=== PATIENT | female | born 1980 | race Caucasian/White ===

== ENCOUNTER 2016-07-24 19:14 | Inpatient (IN) | payer OTHER ==
[~2016-07-24] VITALS: Ht 157.5 cm; Wt 103.5 kg
[2016-07-24] MEDS ORDERED: DIPHTH,PERTUSS(ACELL),TET TOX 0.5 ML DISP.SYRIN. VAX IM ONE (19:30)
[2016-07-24] MEDS ORDERED: HYDROMORPHONE 2 MG/ML VIAL. IV ONE (19:30)
[2016-07-24] MEDS ORDERED: HYDROMORPHONE 2 MG/ML VIAL. ONE (19:30)
[2016-07-24] MEDS ORDERED: CEFAZOLIN 1GM IVPB FOR OMNI 50 ML IV ONE (19:30)
[2016-07-24 19:41] LABS: BASO % 0 % (0-3); EOS % 2 % (0-3); HEMATOCRIT 40.6 % (36.0-47.0); HEMOGLOBIN 13.5 g/dL (12.0-15.5); LYMPH # 5.6 x10^3/uL (1.0-4.8); LYMPH % 35 % (24-48); MEAN CORPUSCULAR HEMOGLOBIN 30 pg (25-35); MEAN CORPUSCULAR HGB CONC 33 g/dL (31-37); MEAN CORPUSCULAR VOLUME 89 fL (79-100); MONO % 4 % (0-9); NEUT % 59 % (31-73); PLATELET COUNT 370 x10^3/uL (140-400); RED BLOOD COUNT 4.55 x10^6/uL (3.50-5.40); WHITE BLOOD COUNT 16.2 x10^3/uL (4.0-11.0)
[2016-07-24 19:51] LABS: CALCIUM 8.9 mg/dL (8.5-10.1); CREATININE 0.7 mg/dL (0.6-1.0); GFR 93.6; POTASSIUM 3.6 mmol/L (3.5-5.1)
[2016-07-24 19:52] LABS: PROTHROMBIN TIME PATIENT 12.7 SEC (11.7-14.0)
[2016-07-24] MEDS: HYDROMORPHONE 2 MG/ML VIAL. IV PRN ×2 (20:04→21:09)
[2016-07-24] MEDS ORDERED: LIDOCAINE 1% / SOD BICARB 8.4% 20 ML VIAL. IJ ONE (20:15)
[2016-07-24] MEDS ORDERED: FENTANYL PF 100 MCG/2 ML VIAL. ONE (20:30)
[2016-07-24] MEDS ORDERED: PROPOFOL 20 ML IV ONE (20:30)
[2016-07-24] MEDS ORDERED: LIDOCAINE 2% 100 MG/5 ML DISP.SYRIN. ONE (20:30)
[2016-07-24] MEDS ORDERED: BACITRACIN TOPICAL OINT 14GM TUBE. TP STA (20:50)
[2016-07-24] MEDS ORDERED: NEOMY/BACITR/POLYMYXIN OINT PACKET. TP ONE (20:51)
[2016-07-24] MEDS: IV NORMAL SALINE 1000ML BAG 1,000 ML IV ONE (21:00)
[2016-07-24] MEDS ORDERED: ONDANSETRON PF 4 MG/2 ML VIAL. IV PRN ×4 (21:00→23:00)
--- NOTE | 2016-07-24 21:02 | PHYS DOC ---
Past Medical History Past Medical History: Anxiety, High Cholesterol Past Surgical History: Other Additional Past Surgical Histo: leep Alcohol Use: Occasionally Drug Use: None Adult General Chief Complaint Chief Complaint: TRAUMA ALERT HPI HPI This is a 28-year-old female who states she fell down 5 steps head first and did impact her jaw slightly but did not have any loss consciousness. She has significant right ankle pain and obvious deformity and open fracture to the right ankle. She also has a superficial laceration to her left forearm approximately 3.5 cm in length. EMS administered 200 g of fentanyl in route and the patient presents in mild distress with her injured right ankle. Patient was made a trauma alert. She denies any history of health problems. She localizes all her pain to her right ankle. She denies any forearm pain whatsoever. She denies any hand or arm pain. She denies any abdominal pain or chest pain. She denies any headache rated. She does not take any blood thinners. Review of Systems Review of Systems Constitutional: Denies fever or chills [] Eyes: Denies change in visual acuity, redness, or eye pain [] HENT: Denies nasal congestion or sore throat [] Respiratory: Denies cough or shortness of breath [] Cardiovascular: No additional information not addressed in HPI [] GI: Denies abdominal pain, nausea, vomiting, bloody stools or diarrhea [] : Denies dysuria or hematuria [] Musculoskeletal: Denies back pain or joint pain [] Integument: Denies rash or skin lesions [] Neurologic: Denies headache, focal weakness or sensory changes [] Endocrine: Denies polyuria or polydipsia [] Current Medications Current Medications Current Medications Medications (Trade) Dose Ordered Sig/Familia Start Time Stop Time Status Last Admin Dose Admin Bacitracin 1 elana 1X STAT 07/24/16 20:50 07/24/16 20:53 DC 07/24/16 20:57 1 ELANA Cefazolin Sodium (Ancef 1gm Ivpb For Omni) 50 ml @ 100 mls/hr 1X ONCE 07/24/16 19:30 07/24/16 19:59 DC 07/24/16 19:53 100 MLS/HR Diphtheria/ Tetanus/Acell Pertussis (Boostrix) 0.5 ml ONCE ONCE 07/24/16 19:30 07/24/16 19:32 DC 07/24/16 19:53 0.5 ML Fentanyl Citrate (Fentanyl 2ml Vial) 100 mcg STK-MED ONCE 07/24/16 20:30 07/24/16 20:31 DC Hydromorphone HCl (Dilaudid) 1 mg Q1HR PRN 07/24/16 20:00 07/24/16 21:09 1 MG Hydromorphone HCl 1 mg 1 mg 1X ONCE 07/24/16 19:30 07/24/16 19:32 DC 07/24/16 19:32 1 MG Lidocaine HCl 100 mg STK-MED ONCE 07/24/16 20:30 07/24/16 20:31 DC Lidocaine/Sodium Bicarbonate 20 ml 20 ml 1X ONCE 07/24/16 20:15 07/24/16 20:16 DC 07/24/16 20:09 20 ML Neomycin/ Polymyxin/ Bacitracin (Triple Antibiotic Ointment) 1 pkt STK-MED ONCE 07/24/16 20:51 07/24/16 20:52 DC Propofol (Diprivan) 20 ml @ As Directed STK-MED ONCE 07/24/16 20:30 07/24/16 20:31 DC Allergies Allergies Physical Exam Physical Exam Constitutional: Well developed, well nourished, no acute distress, non-toxic appearance. [] HENT: Normocephalic, atraumatic, bilateral external ears normal, oropharynx moist, no oral exudates, nose normal. [] Eyes: PERRLA, EOMI, conjunctiva normal, no discharge. [] Neck: Normal range of motion, no tenderness, supple, no stridor. [] Cardiovascular:Heart rate regular rhythm, no murmur [] Lungs & Thorax: Bilateral breath sounds clear to auscultation [] Abdomen: Bowel sounds normal, soft, no tenderness, no masses, no pulsatile masses. [] Skin: Warm, dry, no erythema, no rash. [] Back: No tenderness, no CVA tenderness. [] Extremities: Laceration overlying the lateral malleolus in the right ankle approximately 3 cm, superficial left forearm laceration approximately 3.5 cm, there is obvious deformity to the right ankle, there is no other obvious deformity in either upper extremity or the left lower extremity, no cyanosis, no clubbing, ROM intact, no edema, and has no pain to palpation of the left forearm, left elbow or left shoulder. She has full range of motion in all her extremities other than the right ankle where she cannot move this secondary to pain. She has distal pulses of both bilateral lower extremities that is intact and has full sensation distal to her right ankle injury [] Neurologic: Alert and oriented X 3, normal motor function, normal sensory function, no focal deficits noted. [] Psychologic: Affect normal, judgement normal, mood normal. [] Current Patient Data Vital Signs Vital Signs Date Time Temp Pulse Resp B/P Pulse Ox O2 Delivery O2 Flow Rate FiO2 07/24/16 20:51 122 27 189/81 92 Room Air 07/24/16 19:14 98.5 98.5 Lab Values Laboratory Tests Test 07/24/16 19:25 White Blood Count 16.2x10^3/uL (4.0-11.0) H Red Blood Count 4.55x10^6/uL (3.50-5.40) Hemoglobin 13.5g/dL (12.0-15.5) Hematocrit 40.6% (36.0-47.0) Mean Corpuscular Volume 89fL (79-100) Mean Corpuscular Hemoglobin 30pg (25-35) Mean Corpuscular Hemoglobin Concent 33g/dL (31-37) Red Cell Distribution Width 14.0% (11.5-14.5) Platelet Count 370x10^3/uL (140-400) Neutrophils (%) (Auto) 59% (31-73) Lymphocytes (%) (Auto) 35% (24-48) Monocytes (%) (Auto) 4% (0-9) Eosinophils (%) (Auto) 2% (0-3) Basophils (%) (Auto) 0% (0-3) Neutrophils # (Auto) 9.5x10^3uL (1.8-7.7) H Lymphocytes # (Auto) 5.6x10^3/uL (1.0-4.8) H Monocytes # (Auto) 0.7x10^3/uL (0.0-1.1) Eosinophils # (Auto) 0.3x10^3/uL (0.0-0.7) Basophils # (Auto) 0.0x10^3/uL (0.0-0.2) Prothrombin Time 12.7SEC (11.7-14.0) Prothrombin Time INR 1.0 (0.8-1.1) PTT 23SEC (24-38) L Maternal Serum HCG Beta Subunit < 1mIU/mL (0-6) Sodium Level 140mmol/L (136-145) Potassium Level 3.6mmol/L (3.5-5.1) Chloride Level 103mmol/L (98-107) Carbon Dioxide Level 25mmol/L (21-32) Anion Gap 12 (6-14) Blood Urea Nitrogen 10mg/dL (7-20) Creatinine 0.7mg/dL (0.6-1.0) Estimated GFR (Cockcroft-Gault) 93.6 Glucose Level 108mg/dL (70-99) H Calcium Level 8.9mg/dL (8.5-10.1) Ethyl Alcohol Level < 10mg/dL (0-10) Laboratory Tests 07/24/16 19:25 Laboratory Tests 07/24/16 19:25 EKG EKG [] Radiology/Procedures Radiology/Procedures One view of the chest as interpreted by me did not reveal an acute cardiopulmonary process. Three-view of her right ankle reveals a comminuted fracture of the distal tibia and fibula with complete disruption of the ankle mortise. Course & Med Decision Making Course & Med Decision Making Pertinent Labs and Imaging studies reviewed. (See chart for details) This 36-year-old female with an obvious open fracture to her right ankle was given a dose of Ancef and her tetanus was updated. Her pain was controlled with dilaudid. I discussed the case with the on-call trauma surgeon in the on-call orthopedic surgeon. He orthopedic surgeon on-call, Dr. Fritz, agreed to come in to operate on the patient tonight for her obvious comminuted right ankle fracture that is open. He requested that no manipulation the joint be done prior to the operation. 4-0 nylon sutures were placed into her superficial laceration on her left forearm with excellent approximation. She was transferred out of the department directly to the OR for fracture reduction and repair. Dragon Disclaimer Dragon Disclaimer This electronic medical record was generated, in whole or in part, using a voice recognition dictation system. Laceration Repair Lac Repair Indication: 3.5 cm laceration to the left forearm Procedure: The patient was placed in the appropriate position and 1% buffered lidocaine was injected at the area. The area was then cleansed with normal saline. The laceration was closed with 8 4-0 nylon sutures with excellent approximation. The wound area was then dressed with a dry dressing. Total repaired wound length: 3.5 cm. Other Items: None The patient tolerated the procedure well. Complications: None. Departure Departure Impression: Primary Impression: Open right ankle fracture Disposition: ADMITTED INPATIENT Admitting Physician: Mike Chaves Condition: STABLE Referrals: MARTÍN PERSON (PCP) AARON GARDINER DO Jul 24, 2016 21:02
[2016-07-24] MEDS ORDERED: IV RINGERS,LACTATED 1000ML 1,000 ML IV SCH (21:29)
[2016-07-24] MEDS ORDERED: FENTANYL PF 100 MCG/2 ML VIAL. IV PRN ×2 (21:30→22:00)
[2016-07-24] MEDS ORDERED: HYDROMORPHONE 2 MG/ML VIAL. IV PRN (21:30)
[2016-07-24] MEDS ORDERED: MORPHINE SULFATE 2 MG/ML DISP.SYRIN. IV PRN (21:30)
[2016-07-24] MEDS ORDERED: PROCHLORPERAZINE 10 MG/2 ML VIAL. IV PRN (21:30)
[2016-07-24] MEDS ORDERED: LIDOCAINE 1% 1 ML SYRINGE. ID PRN (21:30)
[2016-07-24] MEDS ORDERED: FAMOTIDINE 20 MG/2 ML VIAL ONE ×2 (21:51→22:03)
[2016-07-24] MEDS ORDERED: MORPHINE SULFATE 10 MG/ML VIAL. ONE (21:51)
[2016-07-24] MEDS ORDERED: DEXAMETHASONE SOD PHOS 20 MG/5 ML VIAL. ONE ×2 (21:51→22:03)
[2016-07-24] MEDS ORDERED: ONDANSETRON PF 4 MG/2 ML VIAL. ONE ×2 (21:52→22:03)
[2016-07-24] MEDS ORDERED: POLYETHYLENE GLYCOL 3350 17 GM PACKET. PO PRN (22:00)
[2016-07-24] MEDS ORDERED: DEXTROSE 50% 25 GM / 50ML DISP.SYRIN. IV PRN (22:00)
[2016-07-24] MEDS ORDERED: ANTI-COAG MONITOR BY PHARMACY. MC PRN (22:00)
[2016-07-24] MEDS ORDERED: DESFLURANE 31 TO 60 MINUTES IH ONE (22:03)
[2016-07-24] MEDS ORDERED: CEFAZOLIN 2GM PREMIX 50 ML IV SCH (22:30)
[2016-07-24] MEDS ORDERED: HYDROCODONE/APAP 5/325MG TABLET. PO PRN (23:00)
[2016-07-24] MEDS ORDERED: hydrALAZINE 20 MG/ML VIAL. IVP PRN (23:00)
[2016-07-24] MEDS ORDERED: ACETAMINOPHEN 325 MG TABLET. PO PRN (23:00)
[2016-07-24] MEDS ORDERED: ALBUTEROL SULFATE 2.5 MG/3 ML NEBU. NEB PRN (23:00)
[2016-07-24] MEDS ORDERED: ACETAMINOPHEN INTRAVENOUS 100 ML IV ONE (23:34)
[2016-07-25] VITALS (13 sets, daily range): BP systolic 121–156; BP diastolic 68–88
[2016-07-25] MEDS: CEFAZOLIN 2GM PREMIX 50 ML IV SCH ×3 (00:14→12:00)
[2016-07-25] MEDS: FENTANYL PF 100 MCG/2 ML VIAL. IV PRN ×2 (00:35→00:43)
[2016-07-25] MEDS ORDERED: WARFARIN 7.5 MG TABLET. PO ONE (02:00)
[2016-07-25] MEDS ORDERED: ACYC400T PO (02:02)
[2016-07-25] MEDS ORDERED: LEVO1TAB33 PO (02:02)
[2016-07-25] MEDS ORDERED: SERT50TA PO (02:02)
[2016-07-25] MEDS ORDERED: ATOR20TA58 PO (02:02)
[2016-07-25 05:24] LABS: BASO # 0.1 x10^3/uL (0.0-0.2); BASO % 1 % (0-3); EOS % 0 % (0-3); HEMATOCRIT 38.3 % (36.0-47.0); HEMOGLOBIN 12.9 g/dL (12.0-15.5); LYMPH # 1.5 x10^3/uL (1.0-4.8); LYMPH % 11 % (24-48); MEAN CORPUSCULAR HEMOGLOBIN 29 pg (25-35); MEAN CORPUSCULAR HGB CONC 34 g/dL (31-37); MEAN CORPUSCULAR VOLUME 87 fL (79-100); MONO % 1 % (0-9); NEUT % 88 % (31-73); PLATELET COUNT 309 x10^3/uL (140-400); RED BLOOD COUNT 4.39 x10^6/uL (3.50-5.40); RED CELL DISTRIBUTION WIDTH 13.9 % (11.5-14.5)
[2016-07-25 05:40] LABS: CALCIUM 8.5 mg/dL (8.5-10.1); CREATININE 0.8 mg/dL (0.6-1.0); GFR 80.3; POTASSIUM 4.4 mmol/L (3.5-5.1)
[2016-07-25 05:58] LABS: INR 1.1 (0.8-1.1); PROTHROMBIN TIME PATIENT 13.1 SEC (11.7-14.0)
[2016-07-25] MEDS ORDERED: MAGNESIUM HYDROXIDE 2,400 MG/30 ML ORAL.SUSP. PO PRN (06:00)
--- NOTE | 2016-07-25 06:25 | PDOC ---
BRIEF OPERATIVE NOTE Date: Jul 25, 2016 Pre-Op Diagnosis open tibia fibula fx Post-Op Diagnosis same Procedure Performed i/d orif open right tibia fibula distal shaft and pilon fracture Surgeon Lam Anesthesia Type: General Blood Loss 100cc Findings above Complications none ARIK STOVALL MD Jul 25, 2016 06:24
[2016-07-25 07:31] LABS: PLT ESTIMATE ADEQUATE (ADEQUATE)
--- NOTE | 2016-07-25 07:51 | RAD ---
Indication fall, pain. AP and lateral views of the right ankle were obtained. There is a traumatic, comminuted, fracture about the ankle. There is an impacted and angulated fracture of the distal tibia with an additional fracture of the medial malleolus. An impacted and angulated fracture of the distal fibular diaphysis is also noted. There is dislocation at the tibiotalar joint. IMPRESSION: Fracture dislocation right ankle
--- NOTE | 2016-07-25 07:54 | RAD ---
Indication anterior chest wall pain associated with a fall. A single view of the chest was obtained. No prior imaging of the chest is available. The heart and pulmonary vessels appear normal. The mediastinum has a normal appearance. No acute finding is apparent. IMPRESSION: Normal single view of the chest
--- NOTE | 2016-07-25 08:47 | PDOC2 ---
CONSULT Date of Consult Date of Consult DATE: 07/25/16 TIME: 08:40 Reason for Consult Reason for Consult: Trauma Referring Physician Referring Physician: Andie Identification/Chief Complaint Chief Complaint Right ankle pain Source Source: Patient History of Present Illness Reason for Visit: 36 yo female fell down five steps head first. She denies LOC and remembers the fall. Complains of right ankle pain and chin pain. Denies any N/V or abdominal pain Past Medical History Cardiovascular: No pertinent hx Pulmonary: No pertinent hx GI: No pertinent hx Heme/Onc: No pertinent hx Hepatobiliary: No pertinent hx Psych: No pertinent hx Rheumatologic: No pertinent hx Infectious disease: No pertinent hx ENT: No pertinent hx Renal/: No pertinent hx Endocrine: No pertinent hx Dermatology: No pertinent hx Past Surgical History Past Surgical History: No pertinent history Family History Family History: No Significant Social History No ALCOHOL: none Drugs: None Lives: with Family Current Problem List Problem List Problems Medical Problems: (1) Open right ankle fracture Status: Acute Current Medications Current Medications Current Medications Hydromorphone HCl 1 mg 1 mg 1X ONCE IV Last administered on 07/24/16 19:32; Start 07/24/16 at 19:30; Stop 07/24/16 at 19:32; Status DC Cefazolin Sodium (Ancef 1gm Ivpb For Omni) 50 ml @ 100 mls/hr 1X ONCE IV Last administered on 07/24/16 19:53; Start 07/24/16 at 19:30; Stop 07/24/16 at 19:59; Status DC Diphtheria/ Tetanus/Acell Pertussis (Boostrix) 0.5 ml ONCE ONCE VAX IM Last administered on 07/24/16 19:53; Start 07/24/16 at 19:30; Stop 07/24/16 at 19:32 ; Status DC Hydromorphone HCl (Dilaudid) 2 mg STK-MED ONCE .ROUTE ; Start 07/24/16 at 19:30 ; Stop 07/24/16 at 19:31; Status DC Hydromorphone HCl (Dilaudid) 1 mg Q1HR PRN IV PAIN Last administered on 21:09; Start 07/24/16 at 20:00; Stop 07/25/16 at 01:55; Status DC Lidocaine/Sodium Bicarbonate 20 ml 20 ml 1X ONCE IJ Last administered on 20:09; Start 07/24/16 at 20:15; Stop 07/24/16 at 20:16; Status DC Propofol (Diprivan) 20 ml @ As Directed STK-MED ONCE IV ; Start 07/24/16 at 20: 30; Stop 07/24/16 at 20:31; Status DC Lidocaine HCl 100 mg STK-MED ONCE .ROUTE ; Start 07/24/16 at 20:30; Stop at 20:31; Status DC Fentanyl Citrate (Fentanyl 2ml Vial) 100 mcg STK-MED ONCE .ROUTE ; Start at 20:30; Stop 07/24/16 at 20:31; Status DC Bacitracin 1 elana 1X STAT TP Last administered on 07/24/16 20:57; Start at 20:50; Stop 07/24/16 at 20:53; Status DC Neomycin/ Polymyxin/ Bacitracin (Triple Antibiotic Ointment) 1 pkt STK-MED ONCE TP ; Start 07/24/16 at 20:51; Stop 07/24/16 at 20:52; Status DC Ondansetron HCl 4 mg 4 mg PRN Q8HRS PRN IV NAUSEA/VOMITING; Start 07/24/16 at 21:00; Stop 07/25/16 at 01:54; Status DC Sodium Chloride (Iv Sodium Chloride 0.9% 1000ml Bag) 1,000 ml @ 100 mls/hr 1X ONCE IV ; Start 07/24/16 at 21:00; Stop 07/25/16 at 01:55; Status DC Ondansetron HCl (Zofran) 4 mg PRN Q6HRS PRN IV Nausea; Start 07/24/16 at 21:30 ; Stop 07/25/16 at 01:54; Status DC Fentanyl Citrate (Fentanyl 2ml Vial) 25 mcg PRN Q5MIN PRN IV MILD PAIN; Start 07/24/16 at 21:30; Stop 07/25/16 at 21:29 Fentanyl Citrate (Fentanyl 2ml Vial) 50 mcg PRN Q5MIN PRN IV MODERATE PAIN Last administered on 07/25/16 00:43; Start 07/24/16 at 21:30; Stop 07/25/16 at 21:29 Morphine Sulfate 1 mg 1 mg PRN Q10MIN PRN IV SEVERE PAIN; Start 07/24/16 at 21: 30; Stop 07/25/16 at 21:29 Lactated Ringer's (Iv Lactated Ringers) 1,000 ml @ 30 mls/hr Q24H IV ; Start at 21:29; Stop 07/25/16 at 09:28 Lidocaine HCl 2 ml 1X PRN PRN ID IV START; Start 07/24/16 at 21:30; Stop at 21:29 Hydromorphone HCl (Dilaudid) 0.5 mg PRN Q10MIN PRN IV SEV PAIN,Second choice; Start 07/24/16 at 21:30; Stop 07/25/16 at 21:29 Prochlorperazine Edisylate (Compazine) 5 mg PACU PRN PRN IV NAUSEA Last administered on 07/25/16t 00:34; Start 07/24/16 at 21:30; Stop 07/25/16 at 21:29 Dexamethasone Sodium Phosphate (Decadron) 20 mg STK-MED ONCE .ROUTE ; Start at 21:51; Stop 07/24/16 at 21:52; Status DC Famotidine (Pepcid) 20 mg STK-MED ONCE .ROUTE ; Start 07/24/16 at 21:51; Stop at 21:52; Status DC Morphine Sulfate 10 mg STK-MED ONCE .ROUTE ; Start 07/24/16 at 21:51; Stop 07/24 at 21:52; Status DC Ondansetron HCl (Zofran) 4 mg STK-MED ONCE .ROUTE ; Start 07/24/16 at 21:52; Stop 07/24/16 at 21:53; Status DC Oxycodone HCl (Roxicodone) 5 mg PRN Q3HRS PRN PO PAIN; Start 07/24/16 at 22:00 Morphine Sulfate 2 mg PRN Q1HR PRN IV PAIN; Start 07/24/16 at 22:00 Fentanyl Citrate (Fentanyl 2ml Vial) 25 mcg PRN Q1HR PRN IV PAIN; Start at 22:00 Senna/Docusate Sodium (Senna Plus) 1 tab DAILY PO ; Start 07/25/16 at 09:00 Polyethylene Glycol (miraLAX PACKET) 17 gm PRN DAILY PRN PO CONSTIPATION; Start 07/24/16 at 22:00 Ondansetron HCl (Zofran) 4 mg PRN Q4HRS PRN IV NAUSEA/VOMITING; Start 07/24/16 at 22:00 Warfarin Sodium (Coumadin Per Pharmacy) 1 each PRN DAILY PRN MC SEE COMMENTS Last administered on 07/25/16t 02:31; Start 07/25/16 at 22:00 Magnesium Hydroxide (Milk Of Magnesia) 2,400 mg 1X PRN PRN PO CONSTIPATION; Start 07/25/16 at 06:00; Stop 07/26/16 at 05:59 Bisacodyl (Dulcolax Supp) 10 mg 1X PRN PRN IN CONSTIPATION; Start 07/25/16 at 16:00; Stop 07/26/16 at 15:59 Acetaminophen/ Hydrocodone Bitart (Lortab 7.5/325) 1 tab PRN Q4HRS PRN PO PAIN ; Start 07/24/16 at 22:00 Morphine Sulfate 4 mg PRN Q2HR PRN IV PAIN; Start 07/24/16 at 22:00 Acetaminophen/ Hydrocodone Bitart (Lortab 7.5/325) 2 tab PRN Q4HRS PRN PO PAIN ; Start 07/24/16 at 22:00 Dextrose 12.5 gm 12.5 gm PRN Q15MIN PRN IV SEE COMMENTS; Start 07/24/16 at 22: 00 Cefazolin Sodium/ Dextrose (Ancef 2gm Premix) 50 ml @ 100 mls/hr Q6H IV ; Start 07/24/16 at 22:30; Stop 07/24/16 at 22:30; Status DC Dexamethasone Sodium Phosphate (Decadron) 20 mg STK-MED ONCE .ROUTE ; Start at 22:03; Stop 07/24/16 at 22:04; Status DC Famotidine (Pepcid) 20 mg STK-MED ONCE .ROUTE ; Start 07/24/16 at 22:03; Stop at 22:04; Status DC Ondansetron HCl (Zofran) 4 mg STK-MED ONCE .ROUTE ; Start 07/24/16 at 22:03; Stop 07/24/16 at 22:04; Status DC Desflurane 30 ml 30 ml STK-MED ONCE IH ; Start 07/24/16 at 22:03; Stop 07/24/16 at 22:04; Status DC Cefazolin Sodium/ Dextrose (Ancef 2gm Premix) 50 ml @ 100 mls/hr Q6H IV Last administered on 07/25/16 06:04; Start 07/25/16 at 00:00; Stop 07/25/16 at 12:29 Acetaminophen (Tylenol) 325 mg PRN Q6HRS PRN PO MILD PAIN / TEMP; Start at 23:00 Acetaminophen/ Hydrocodone Bitart (Lortab 5/325) 1 tab PRN Q6HRS PRN PO MODERATE TO SEVERE PAIN; Start 07/24/16 at 23:00; Stop 07/25/16 at 01:54; Status DC Hydralazine HCl (Apresoline) 10 mg PRN Q4HRS PRN IVP ELEVATED BP, SEE COMMENTS ; Start 07/24/16 at 23:00 Ondansetron HCl (Zofran) 4 mg PRN Q8HRS PRN IV NAUSEA/VOMITING; Start 07/24/16 at 23:00 Albuterol Sulfate 2.5 mg 2.5 mg PRN Q4HRS PRN NEB SHORTNESS OF BREATH; Start at 23:00 Acetaminophen (Ofirmev) 100 ml @ As Directed STK-MED ONCE IV ; Start 07/24/16 at 23:34; Stop 07/24/16 at 23:35; Status DC Warfarin Sodium (Coumadin) 7.5 mg ONCE ONCE PO Last administered on 07/25/16 02:11; Start 07/25/16 at 02:00; Stop 07/25/16 at 02:01; Status DC Info (Anti-Coagulation Monitoring By Pharmacy) 1 each PRN DAILY PRN MC SEE COMMENTS; Start 07/24/16 at 22:00 Active Scripts Active Reported Zoloft (Sertraline Hcl) 50 Mg Tablet 50 Mg PO HS Acyclovir 400 Mg Tablet 400 Mg PO HS Levora-28 (Levonorgestrel-Eth Estradiol) 1 Each Tablet 1 Each PO HS Atorvastatin Calcium 20 Mg Tablet 20 Mg PO HS Allergies Allergies: Coded Allergies: No Known Drug Allergies (Unverified , 07/24/16) ROS Musculoskeletal: Yes Joint Pain, Yes Swelling In: (chin) Physical Exam General: Alert, Oriented X3, Cooperative, mild distress HEENT: PERRLA, EOMI, Other (Contusion chin) Lungs: Clear to auscultation, Normal air movement Heart: Regular rate, No murmurs Abdomen: Normal bowel sounds, Soft, No tenderness Extremities: Other (Dressed Right leg s/p ORIF Tib/Fib open Fx) Skin: Other (Sutrured Left forearm lac) Neuro: Normal speech Vitals VITALS Vital Signs Date Time Temp Pulse Resp B/P Pulse Ox O2 Delivery O2 Flow Rate FiO2 07/25/16 07:00 97.4 98 18 123/78 99 Room Air 97.4 07/25/16 04:50 2.0 Labs Labs Laboratory Tests Test 07/24/16 19:25 07/25/16 05:02 White Blood Count 16.2x10^3/uL (4.0-11.0) 14.0x10^3/uL (4.0-11.0) Red Blood Count 4.55x10^6/uL (3.50-5.40) 4.39x10^6/uL (3.50-5.40) Hemoglobin 13.5g/dL (12.0-15.5) 12.9g/dL (12.0-15.5) Hematocrit 40.6% (36.0-47.0) 38.3% (36.0-47.0) Mean Corpuscular Volume 89fL (79-100) 87fL (79-100) Mean Corpuscular Hemoglobin 30pg (25-35) 29pg (25-35) Mean Corpuscular Hemoglobin Concent 33g/dL (31-37) 34g/dL (31-37) Red Cell Distribution Width 14.0% (11.5-14.5) 13.9% (11.5-14.5) Platelet Count 370x10^3/uL (140-400) 309x10^3/uL (140-400) Neutrophils (%) (Auto) 59% (31-73) 88% (31-73) Lymphocytes (%) (Auto) 35% (24-48) 11% (24-48) Monocytes (%) (Auto) 4% (0-9) 1% (0-9) Eosinophils (%) (Auto) 2% (0-3) 0% (0-3) Basophils (%) (Auto) 0% (0-3) 1% (0-3) Neutrophils # (Auto) 9.5x10^3uL (1.8-7.7) 12.3x10^3uL (1.8-7.7) Lymphocytes # (Auto) 5.6x10^3/uL (1.0-4.8) 1.5x10^3/uL (1.0-4.8) Monocytes # (Auto) 0.7x10^3/uL (0.0-1.1) 0.2x10^3/uL (0.0-1.1) Eosinophils # (Auto) 0.3x10^3/uL (0.0-0.7) 0.0x10^3/uL (0.0-0.7) Basophils # (Auto) 0.0x10^3/uL (0.0-0.2) 0.1x10^3/uL (0.0-0.2) Prothrombin Time 12.7SEC (11.7-14.0) 13.1SEC (11.7-14.0) Prothromb Time International Ratio 1.0 (0.8-1.1) 1.1 (0.8-1.1) Activated Partial Thromboplast Time 23SEC (24-38) Maternal Serum HCG Beta Subunit < 1mIU/mL (0-6) Sodium Level 140mmol/L (136-145) 135mmol/L (136-145) Potassium Level 3.6mmol/L (3.5-5.1) 4.4mmol/L (3.5-5.1) Chloride Level 103mmol/L (98-107) 101mmol/L (98-107) Carbon Dioxide Level 25mmol/L (21-32) 24mmol/L (21-32) Anion Gap 12 (6-14) 10 (6-14) Blood Urea Nitrogen 10mg/dL (7-20) 8mg/dL (7-20) Creatinine 0.7mg/dL (0.6-1.0) 0.8mg/dL (0.6-1.0) Estimated GFR (Cockcroft-Gault) 93.6 80.3 Glucose Level 108mg/dL (70-99) 156mg/dL (70-99) Calcium Level 8.9mg/dL (8.5-10.1) 8.5mg/dL (8.5-10.1) Ethyl Alcohol Level < 10mg/dL (0-10) Segmented Neutrophils % 91% (35-66) Band Neutrophils % 1% (0-9) Lymphocytes % 8% (24-48) Platelet Estimate Adequate (ADEQUATE) Laboratory Tests Test 07/24/16 19:25 07/25/16 05:02 White Blood Count 16.2x10^3/uL (4.0-11.0) 14.0x10^3/uL (4.0-11.0) Red Blood Count 4.55x10^6/uL (3.50-5.40) 4.39x10^6/uL (3.50-5.40) Hemoglobin 13.5g/dL (12.0-15.5) 12.9g/dL (12.0-15.5) Hematocrit 40.6% (36.0-47.0) 38.3% (36.0-47.0) Mean Corpuscular Volume 89fL (79-100) 87fL (79-100) Mean Corpuscular Hemoglobin 30pg (25-35) 29pg (25-35) Mean Corpuscular Hemoglobin Concent 33g/dL (31-37) 34g/dL (31-37) Red Cell Distribution Width 14.0% (11.5-14.5) 13.9% (11.5-14.5) Platelet Count 370x10^3/uL (140-400) 309x10^3/uL (140-400) Neutrophils (%) (Auto) 59% (31-73) 88% (31-73) Lymphocytes (%) (Auto) 35% (24-48) 11% (24-48) Monocytes (%) (Auto) 4% (0-9) 1% (0-9) Eosinophils (%) (Auto) 2% (0-3) 0% (0-3) Basophils (%) (Auto) 0% (0-3) 1% (0-3) Neutrophils # (Auto) 9.5x10^3uL (1.8-7.7) 12.3x10^3uL (1.8-7.7) Lymphocytes # (Auto) 5.6x10^3/uL (1.0-4.8) 1.5x10^3/uL (1.0-4.8) Monocytes # (Auto) 0.7x10^3/uL (0.0-1.1) 0.2x10^3/uL (0.0-1.1) Eosinophils # (Auto) 0.3x10^3/uL (0.0-0.7) 0.0x10^3/uL (0.0-0.7) Basophils # (Auto) 0.0x10^3/uL (0.0-0.2) 0.1x10^3/uL (0.0-0.2) Prothrombin Time 12.7SEC (11.7-14.0) 13.1SEC (11.7-14.0) Prothromb Time International Ratio 1.0 (0.8-1.1) 1.1 (0.8-1.1) Activated Partial Thromboplast Time 23SEC (24-38) Maternal Serum HCG Beta Subunit < 1mIU/mL (0-6) Sodium Level 140mmol/L (136-145) 135mmol/L (136-145) Potassium Level 3.6mmol/L (3.5-5.1) 4.4mmol/L (3.5-5.1) Chloride Level 103mmol/L (98-107) 101mmol/L (98-107) Carbon Dioxide Level 25mmol/L (21-32) 24mmol/L (21-32) Anion Gap 12 (6-14) 10 (6-14) Blood Urea Nitrogen 10mg/dL (7-20) 8mg/dL (7-20) Creatinine 0.7mg/dL (0.6-1.0) 0.8mg/dL (0.6-1.0) Estimated GFR (Cockcroft-Gault) 93.6 80.3 Glucose Level 108mg/dL (70-99) 156mg/dL (70-99) Calcium Level 8.9mg/dL (8.5-10.1) 8.5mg/dL (8.5-10.1) Ethyl Alcohol Level < 10mg/dL (0-10) Segmented Neutrophils % 91% (35-66) Band Neutrophils % 1% (0-9) Lymphocytes % 8% (24-48) Platelet Estimate Adequate (ADEQUATE) Images Images xrays reviewed Assessment/Plan Assessment/Plan Traumatic fall with Open right tib/fib Fx per Ortho Facial contusion and laceration left forearm s/p repair No general surgical concerns RUPINDER VIVEROS MD Jul 25, 2016 08:47
[2016-07-25] MEDS: SENNOSIDES/DOCUSATE 8.6/50MG TABLET. PO SCH (10:17)
[2016-07-25] MEDS: MORPHINE SULFATE 4 MG/ML DISP.SYRIN. IV PRN ×2 (10:17→17:17)
[2016-07-25] MEDS: HYDROCODONE/APAP 7.5/325MG TABLET. PO PRN ×2 (13:09→13:52)
[2016-07-25] MEDS ORDERED: BISACODYL 10 MG SUPP.RECT. PR PRN (16:00)
[2016-07-25] MEDS ORDERED: WARFARIN 5 MG TABLET. PO ONE (16:00)
--- NOTE | 2016-07-25 16:47 | HP ---
ADMIT DATE: 07/24/2016 CHIEF COMPLAINT: Fall with right ankle pain. HISTORY OF PRESENT ILLNESS: The patient is a pleasant 36-year-old female who fell. She tripped over her dog. Apparently, dog yanked the leash and she fell; she had an open fracture of the right ankle. She was brought to the ER for evaluation. She went for emergent surgery last night with the Orthopedics. Post-procedure, she is doing well this morning. We plan to discharge, perhaps tomorrow, if she is doing better. PAST MEDICAL HISTORY: Anxiety, hyperlipidemia. ALLERGIES: None. FAMILY HISTORY: Coronary artery disease. SOCIAL HISTORY: She does not drink, smoke, or take drugs. 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 MEDICATIONS: Reviewed, please refer to the MRAD. REVIEW OF SYSTEMS: GENERAL: No history of weight change, weakness or fevers. SKIN: No bruising, hair changes or rashes. EYES: No blurred, double or loss of vision. NOSE AND THROAT: No history of nosebleeds, hoarseness or sore throat. HEART: No history of palpitations, chest pain or shortness of breath on exertion. LUNGS: Denies cough, hemoptysis, wheezing or shortness of breath. GASTROINTESTINAL: Denies changes in appetite, nausea, vomiting, diarrhea or constipation. GENITOURINARY: No history of frequency, urgency, hesitancy or nocturia. NEUROLOGIC: Denies history of numbness, tingling, tremor or weakness. PSYCHIATRIC: No history of panic, anxiety or depression. ENDOCRINE: No history of heat or cold intolerance, polyuria or polydipsia. EXTREMITIES: Denies muscle weakness, joint pain, pain on walking or stiffness. PHYSICAL EXAMINATION: VITAL SIGNS: Temperature afebrile, pulse 68, respirations 18, blood pressure 114/90. GENERAL: She is alert, cooperative. HEART: Normal S1, S2. LUNGS: Clear. ABDOMEN: Soft. EXTREMITIES: No edema. The right ankle has a cast. ENDOCRINE: No thyromegaly. LYMPHATICS: No cervical nodes. HEMATOPOIETIC: No bruising. LABORATORY DATA: Hematology: White count 16, hemoglobin 13, platelets 370. Electrolytes normal. ASSESSMENT AND PLAN: Postop right ankle open reduction internal fixation after a fall. The patient has been admitted. We are doing some physical therapy, occupational therapy, wound care, p.r.n. narcotics. I resumed her home meds, we hope to discharge tomorrow. JASSI DOUGLASS DO DR: ADEOLA/cisco JOB#: [id number] / [id number]
--- NOTE | 2016-07-25 17:43 | PDOC ---
PROGRESS NOTES Subjective Subjective Problems overnight: Pain reasonably controlled much better than yesterday. Concerned about implications of return to work Objective Vital Signs Vital Signs Date Time Temp Pulse Resp B/P Pulse Ox O2 Delivery O2 Flow Rate FiO2 07/25/16 17:17 16 Room Air 07/25/16 15:00 99.1 94 127/72 93 99.1 07/25/16 04:50 2.0 Physical Exam On exam slight drainage laterally with an otherwise intact splint intact distal neurovascular status Labs Laboratory Tests Test 07/24/16 19:25 07/25/16 05:02 White Blood Count 16.2x10^3/uL (4.0-11.0) 14.0x10^3/uL (4.0-11.0) Red Blood Count 4.55x10^6/uL (3.50-5.40) 4.39x10^6/uL (3.50-5.40) Hemoglobin 13.5g/dL (12.0-15.5) 12.9g/dL (12.0-15.5) Hematocrit 40.6% (36.0-47.0) 38.3% (36.0-47.0) Mean Corpuscular Volume 89fL (79-100) 87fL (79-100) Mean Corpuscular Hemoglobin 30pg (25-35) 29pg (25-35) Mean Corpuscular Hemoglobin Concent 33g/dL (31-37) 34g/dL (31-37) Red Cell Distribution Width 14.0% (11.5-14.5) 13.9% (11.5-14.5) Platelet Count 370x10^3/uL (140-400) 309x10^3/uL (140-400) Neutrophils (%) (Auto) 59% (31-73) 88% (31-73) Lymphocytes (%) (Auto) 35% (24-48) 11% (24-48) Monocytes (%) (Auto) 4% (0-9) 1% (0-9) Eosinophils (%) (Auto) 2% (0-3) 0% (0-3) Basophils (%) (Auto) 0% (0-3) 1% (0-3) Neutrophils # (Auto) 9.5x10^3uL (1.8-7.7) 12.3x10^3uL (1.8-7.7) Lymphocytes # (Auto) 5.6x10^3/uL (1.0-4.8) 1.5x10^3/uL (1.0-4.8) Monocytes # (Auto) 0.7x10^3/uL (0.0-1.1) 0.2x10^3/uL (0.0-1.1) Eosinophils # (Auto) 0.3x10^3/uL (0.0-0.7) 0.0x10^3/uL (0.0-0.7) Basophils # (Auto) 0.0x10^3/uL (0.0-0.2) 0.1x10^3/uL (0.0-0.2) Prothrombin Time 12.7SEC (11.7-14.0) 13.1SEC (11.7-14.0) Prothromb Time International Ratio 1.0 (0.8-1.1) 1.1 (0.8-1.1) Activated Partial Thromboplast Time 23SEC (24-38) Maternal Serum HCG Beta Subunit < 1mIU/mL (0-6) Sodium Level 140mmol/L (136-145) 135mmol/L (136-145) Potassium Level 3.6mmol/L (3.5-5.1) 4.4mmol/L (3.5-5.1) Chloride Level 103mmol/L (98-107) 101mmol/L (98-107) Carbon Dioxide Level 25mmol/L (21-32) 24mmol/L (21-32) Anion Gap 12 (6-14) 10 (6-14) Blood Urea Nitrogen 10mg/dL (7-20) 8mg/dL (7-20) Creatinine 0.7mg/dL (0.6-1.0) 0.8mg/dL (0.6-1.0) Estimated GFR (Cockcroft-Gault) 93.6 80.3 Glucose Level 108mg/dL (70-99) 156mg/dL (70-99) Calcium Level 8.9mg/dL (8.5-10.1) 8.5mg/dL (8.5-10.1) Ethyl Alcohol Level < 10mg/dL (0-10) Segmented Neutrophils % 91% (35-66) Band Neutrophils % 1% (0-9) Lymphocytes % 8% (24-48) Platelet Estimate Adequate (ADEQUATE) Laboratory Tests Test 07/24/16 19:25 07/25/16 05:02 White Blood Count 16.2x10^3/uL (4.0-11.0) 14.0x10^3/uL (4.0-11.0) Red Blood Count 4.55x10^6/uL (3.50-5.40) 4.39x10^6/uL (3.50-5.40) Hemoglobin 13.5g/dL (12.0-15.5) 12.9g/dL (12.0-15.5) Hematocrit 40.6% (36.0-47.0) 38.3% (36.0-47.0) Mean Corpuscular Volume 89fL (79-100) 87fL (79-100) Mean Corpuscular Hemoglobin 30pg (25-35) 29pg (25-35) Mean Corpuscular Hemoglobin Concent 33g/dL (31-37) 34g/dL (31-37) Red Cell Distribution Width 14.0% (11.5-14.5) 13.9% (11.5-14.5) Platelet Count 370x10^3/uL (140-400) 309x10^3/uL (140-400) Neutrophils (%) (Auto) 59% (31-73) 88% (31-73) Lymphocytes (%) (Auto) 35% (24-48) 11% (24-48) Monocytes (%) (Auto) 4% (0-9) 1% (0-9) Eosinophils (%) (Auto) 2% (0-3) 0% (0-3) Basophils (%) (Auto) 0% (0-3) 1% (0-3) Neutrophils # (Auto) 9.5x10^3uL (1.8-7.7) 12.3x10^3uL (1.8-7.7) Lymphocytes # (Auto) 5.6x10^3/uL (1.0-4.8) 1.5x10^3/uL (1.0-4.8) Monocytes # (Auto) 0.7x10^3/uL (0.0-1.1) 0.2x10^3/uL (0.0-1.1) Eosinophils # (Auto) 0.3x10^3/uL (0.0-0.7) 0.0x10^3/uL (0.0-0.7) Basophils # (Auto) 0.0x10^3/uL (0.0-0.2) 0.1x10^3/uL (0.0-0.2) Prothrombin Time 12.7SEC (11.7-14.0) 13.1SEC (11.7-14.0) Prothromb Time International Ratio 1.0 (0.8-1.1) 1.1 (0.8-1.1) Activated Partial Thromboplast Time 23SEC (24-38) Maternal Serum HCG Beta Subunit < 1mIU/mL (0-6) Sodium Level 140mmol/L (136-145) 135mmol/L (136-145) Potassium Level 3.6mmol/L (3.5-5.1) 4.4mmol/L (3.5-5.1) Chloride Level 103mmol/L (98-107) 101mmol/L (98-107) Carbon Dioxide Level 25mmol/L (21-32) 24mmol/L (21-32) Anion Gap 12 (6-14) 10 (6-14) Blood Urea Nitrogen 10mg/dL (7-20) 8mg/dL (7-20) Creatinine 0.7mg/dL (0.6-1.0) 0.8mg/dL (0.6-1.0) Estimated GFR (Cockcroft-Gault) 93.6 80.3 Glucose Level 108mg/dL (70-99) 156mg/dL (70-99) Calcium Level 8.9mg/dL (8.5-10.1) 8.5mg/dL (8.5-10.1) Ethyl Alcohol Level < 10mg/dL (0-10) Segmented Neutrophils % 91% (35-66) Band Neutrophils % 1% (0-9) Lymphocytes % 8% (24-48) Platelet Estimate Adequate (ADEQUATE) Imaging Intraoperative x-rays show excellent reduction of a severely comminuted intra- articular distal tibia and fibular fracture Assessment Assessment POD# [1], S/P [ORIF distal tibia and fibula fracture open] Problems: Plan Plan of Care Mobilize with physical therapy strict nonweightbearing Prophylactic antibiotics completed today Possible discharge tomorrow based on progress pain control and physical therapy ARIK STOVALL MD Jul 25, 2016 17:43
[2016-07-25] MEDS: LEVONORGESTREL PO SCH (18:00)
[2016-07-25] MEDS: ETHINYL ESTRADIOL PO SCH (18:00)
[2016-07-25] MEDS: SERTRALINE 50 MG TABLET. PO SCH (21:49)
[2016-07-25] MEDS: ACYCLOVIR 200 MG CAPSULE. PO SCH (21:49)
[2016-07-25] MEDS: ATORVASTATIN CALCIUM 20 MG TABLET PO SCH (21:49)
[2016-07-25] MEDS: OXYCODONE IR 5 MG TABLET. PO PRN (21:56)
[2016-07-25 21:57] LABS: HEMATOCRIT 35.6 % (36.0-47.0); HEMOGLOBIN 11.9 g/dL (12.0-15.5)
--- NOTE | 2016-07-26 00:39 | CONS ---
DATE OF CONSULTATION: 07/24/2016 EMERGENCY DEPARTMENT CONSULTATION REQUESTING PHYSICIAN: Dr. Bebo Calhoun, [facility]. REASON FOR CONSULTATION: Open right ankle fracture. HISTORY OF PRESENT ILLNESS: The patient is a 36-year-old female that was working outside in her garden and fell down about 5 concrete steps, badly twisted her ankle and has an obvious deformity with bone sticking out. She denies any head injury or loss of consciousness. She does have a laceration to her left forearm that was repaired in the ER, but obviously has the most distress due to her ankle injury. PAST MEDICAL HISTORY: Significant for hypercholesterolemia and anxiety. PAST SURGICAL HISTORY: Significant for a LEEP procedure on her cervix. ALLERGIES: She has no known drug allergies. MEDICATIONS: List is reviewed, which includes control pills. FAMILY HISTORY: Noncontributory. SOCIAL HISTORY: She denies smoking or drug use, occasional social drinker of alcohol, independently ambulatory, is concerned with the amount of work, she may have to miss due to the injury. REVIEW OF SYSTEMS: Denies any focal weakness, numbness, tingling, chest pain, shortness of breath, radiating pain in the extremities. She does have some right ankle area pain with any motion whatsoever or muscle spasm. She denies any head injury, visual changes, headache, recent weight loss or gain, change in bowel or bladder habits and specifically denies being . She was asked to take a test presurgically. PHYSICAL EXAMINATION: VITAL SIGNS: Temperature 98.5, pulse 108, respirations 24, blood pressure 194/79, pulse ox is 94% on room air. HEENT: Atraumatic, normocephalic. HEART: Regular rate and rhythm. LUNGS: Clear to auscultation bilaterally. ABDOMEN: Benign. EXTREMITIES: Examination of the upper extremities reveals normal range of motion, stability, alignment of the shoulder, elbow and wrist bilaterally. She does have a forearm laceration on the left side that was repaired in the Emergency Department. It is now bandaged. She has no tenderness over the neck or back on palpation. No tenderness over the hips or knees bilaterally. Obvious deformity with open exposed bone on the medial aspect of her right distal portion of tibia. She can wiggle her toes, but with very significant pain and ankles obviously unstable and deformed on the right. Now she has normal examination of the contralateral left ankle and overall intact motor function, distal pulses, sensation, reflexes, skin in both upper and lower extremities throughout. X-rays show a comminuted distal tibia and fibula fracture that appeared to be metaphyseal area of the tibia with some involvement of the medial malleolus as well, possible extension into the joint surface. Based on the limited films available, that fibula fracture is present in the shaft at the same level. IMPRESSION: Open right distal tibia fracture. TREATMENT PLAN: I went over with her the increased risk of infection, difficulties healing with open fractures and the need for fairly prompt treatment of this. She is n.p.o. since 1:00 and therefore based on her degree of discomfort, the open nature, and the fact that it occurred in the Garden, I think proceeding tonight would be certainly reasonable. We had gone through the planned internal fixation with plate and screws after washing the area out thoroughly. It is possible that fixation of the tibia only would be needed, but if the fibula is not essentially anatomically aligned with this ____ may undergo fixation of the fibula as well. All her questions were answered regarding the surgical options postoperatively, likely restrictions of an extended period of nonweightbearing perhaps estimated at about 2 months and again the increased risk of infection, the possibility of nerve or blood vessel damage, medical or other anesthetic complications among others. We are going to proceed urgently with surgery this evening. Of note, she does refuse to take a test and states that she is very diligent about taking her control and again just refuses preoperatively. This is a precaution for the x-rays which she understands ____. Again, we are going to proceed urgently with surgical evaluation and treatment. ARIK STOVALL MD DR: TAMIR/cisco JOB#: [id number] / [id number]
[2016-07-26 03:00] VITALS: BP 109/67
[2016-07-26] MEDS: MORPHINE SULFATE 2 MG/ML DISP.SYRIN. IV PRN ×2 (04:33→08:23)
[2016-07-26] MEDS ORDERED: FENTANYL PF 100 MCG/2 ML VIAL. IV PRN (05:19)
[2016-07-26] MEDS ORDERED: ACETAMINOPHEN 325 MG TABLET. PO PRN (05:19)
[2016-07-26] MEDS ORDERED: ONDANSETRON PF 4 MG/2 ML VIAL. IV PRN (05:20)
[2016-07-26 06:20] LABS: BASO # 0.1 x10^3/uL (0.0-0.2); BASO % 1 % (0-3); EOS % 0 % (0-3); HEMATOCRIT 36.1 % (36.0-47.0); HEMOGLOBIN 12.2 g/dL (12.0-15.5); LYMPH # 3.9 x10^3/uL (1.0-4.8); LYMPH % 28 % (24-48); MEAN CORPUSCULAR HEMOGLOBIN 30 pg (25-35); MEAN CORPUSCULAR HGB CONC 34 g/dL (31-37); MEAN CORPUSCULAR VOLUME 88 fL (79-100); MONO % 6 % (0-9); NEUT % 65 % (31-73); PLATELET COUNT 292 x10^3/uL (140-400); RED BLOOD COUNT 4.12 x10^6/uL (3.50-5.40); RED CELL DISTRIBUTION WIDTH 14.2 % (11.5-14.5); WHITE BLOOD COUNT 13.8 x10^3/uL (4.0-11.0)
[2016-07-26 06:36] LABS: INR 1.3 (0.8-1.1)
[2016-07-26 06:58] LABS: CALCIUM 8.6 mg/dL (8.5-10.1); CREATININE 0.7 mg/dL (0.6-1.0); GFR 93.6; POTASSIUM 3.6 mmol/L (3.5-5.1)
[2016-07-26 07:00] VITALS: BP 112/64
[2016-07-26] MEDS: SENNOSIDES/DOCUSATE 8.6/50MG TABLET. PO SCH (08:24)
--- NOTE | 2016-07-26 10:17 | PDOC ---
PROGRESS NOTES Chief Complaint Chief Complaint CC - Fall, open fracture of right ankle Assessment S/P [ORIF distal tibia and fibula fracture open] Hyperlipidemia Anxiety History of Present Illness History of Present Illness Patient was sitting in the bed at the time of evaluation, was in no acute distress. Had pain and muscle spasm complains in right leg, muscle relaxant and increased narcotic pain med dose ordered. Pt. is talkative, wants to get discharge tomorrow. Vitals Vitals Vital Signs Date Time Temp Pulse Resp B/P Pulse Ox O2 Delivery O2 Flow Rate FiO2 07/26/16 08:53 14 Room Air 07/26/16 07:00 98.8 85 112/64 92 98.8 Physical Exam General: Alert, Oriented X3, Cooperative, mild distress Heart: Regular rate, No murmurs Lungs: Clear Abdomen: Normal bowel sounds, Soft, No tenderness Extremities: Other (Dressed Right leg s/p ORIF Tib/Fib open Fx) Skin: Other (Sutrured Left forearm lac) Labs LABS Laboratory Tests Test 07/25/16 21:50 07/26/16 05:55 Hemoglobin 11.9g/dL (12.0-15.5) 12.2g/dL (12.0-15.5) Hematocrit 35.6% (36.0-47.0) 36.1% (36.0-47.0) Mean Corpuscular Hemoglobin Concent 33g/dL (31-37) 34g/dL (31-37) White Blood Count 13.8x10^3/uL (4.0-11.0) Red Blood Count 4.12x10^6/uL (3.50-5.40) Mean Corpuscular Volume 88fL (79-100) Mean Corpuscular Hemoglobin 30pg (25-35) Red Cell Distribution Width 14.2% (11.5-14.5) Platelet Count 292x10^3/uL (140-400) Neutrophils (%) (Auto) 65% (31-73) Lymphocytes (%) (Auto) 28% (24-48) Monocytes (%) (Auto) 6% (0-9) Eosinophils (%) (Auto) 0% (0-3) Basophils (%) (Auto) 1% (0-3) Neutrophils # (Auto) 8.9x10^3uL (1.8-7.7) Lymphocytes # (Auto) 3.9x10^3/uL (1.0-4.8) Monocytes # (Auto) 0.8x10^3/uL (0.0-1.1) Eosinophils # (Auto) 0.0x10^3/uL (0.0-0.7) Basophils # (Auto) 0.1x10^3/uL (0.0-0.2) Prothrombin Time 15.0SEC (11.7-14.0) Prothromb Time International Ratio 1.3 (0.8-1.1) Sodium Level 143mmol/L (136-145) Potassium Level 3.6mmol/L (3.5-5.1) Chloride Level 106mmol/L (98-107) Carbon Dioxide Level 28mmol/L (21-32) Anion Gap 9 (6-14) Blood Urea Nitrogen 9mg/dL (7-20) Creatinine 0.7mg/dL (0.6-1.0) Estimated GFR (Cockcroft-Gault) 93.6 Glucose Level 104mg/dL (70-99) Calcium Level 8.6mg/dL (8.5-10.1) Review of Systems Review of Systems Denies fever, chills Denies SOB, CP Denies n/v/d Complains muscle spasm and pain in right leg sensation and movement in right foot toes intact Assessment and Plan Assessmemt and Plan CC - Fall, open fracture of right ankle Assessment S/P [ORIF distal tibia and fibula fracture open] Hyperlipidemia Anxiety PLAN: Continue care per floor protocol Continue wound care Continue pain management with narcotic prn pain meds Flexeril ordered for muscle spasms in right leg Mobilize with physical therapy strict nonweightbearing per sx recommendations Prophylactic antibiotics completed today Possible discharge tomorrow based on progress pain control and physical therapy if ok with ortho Problems Medical Problems: (1) Open right ankle fracture Status: Acute Problems: Comment Review of Relevant I have reviewed the following items sue (where applicable) has been applied. Labs Laboratory Tests Test 07/24/16 19:25 07/25/16 05:02 07/25/16 21:50 07/26/16 05:55 White Blood Count 16.2x10^3/uL (4.0-11.0) 14.0x10^3/uL (4.0-11.0) 13.8x10^3/uL (4.0-11.0) Red Blood Count 4.55x10^6/uL (3.50-5.40) 4.39x10^6/uL (3.50-5.40) 4.12x10^6/uL (3.50-5.40) Hemoglobin 13.5g/dL (12.0-15.5) 12.9g/dL (12.0-15.5) 11.9g/dL (12.0-15.5) 12.2g/dL (12.0-15.5) Hematocrit 40.6% (36.0-47.0) 38.3% (36.0-47.0) 35.6% (36.0-47.0) 36.1% (36.0-47.0) Mean Corpuscular Volume 89fL (79-100) 87fL (79-100) 88fL (79-100) Mean Corpuscular Hemoglobin 30pg (25-35) 29pg (25-35) 30pg (25-35) Mean Corpuscular Hemoglobin Concent 33g/dL (31-37) 34g/dL (31-37) 33g/dL (31-37) 34g/dL (31-37) Red Cell Distribution Width 14.0% (11.5-14.5) 13.9% (11.5-14.5) 14.2% (11.5-14.5) Platelet Count 370x10^3/uL (140-400) 309x10^3/uL (140-400) 292x10^3/uL (140-400) Neutrophils (%) (Auto) 59% (31-73) 88% (31-73) 65% (31-73) Lymphocytes (%) (Auto) 35% (24-48) 11% (24-48) 28% (24-48) Monocytes (%) (Auto) 4% (0-9) 1% (0-9) 6% (0-9) Eosinophils (%) (Auto) 2% (0-3) 0% (0-3) 0% (0-3) Basophils (%) (Auto) 0% (0-3) 1% (0-3) 1% (0-3) Neutrophils # (Auto) 9.5x10^3uL (1.8-7.7) 12.3x10^3uL (1.8-7.7) 8.9x10^3uL (1.8-7.7) Lymphocytes # (Auto) 5.6x10^3/uL (1.0-4.8) 1.5x10^3/uL (1.0-4.8) 3.9x10^3/uL (1.0-4.8) Monocytes # (Auto) 0.7x10^3/uL (0.0-1.1) 0.2x10^3/uL (0.0-1.1) 0.8x10^3/uL (0.0-1.1) Eosinophils # (Auto) 0.3x10^3/uL (0.0-0.7) 0.0x10^3/uL (0.0-0.7) 0.0x10^3/uL (0.0-0.7) Basophils # (Auto) 0.0x10^3/uL (0.0-0.2) 0.1x10^3/uL (0.0-0.2) 0.1x10^3/uL (0.0-0.2) Prothrombin Time 12.7SEC (11.7-14.0) 13.1SEC (11.7-14.0) 15.0SEC (11.7-14.0) Prothromb Time International Ratio 1.0 (0.8-1.1) 1.1 (0.8-1.1) 1.3 (0.8-1.1) Activated Partial Thromboplast Time 23SEC (24-38) Maternal Serum HCG Beta Subunit < 1mIU/mL (0-6) Sodium Level 140mmol/L (136-145) 135mmol/L (136-145) 143mmol/L (136-145) Potassium Level 3.6mmol/L (3.5-5.1) 4.4mmol/L (3.5-5.1) 3.6mmol/L (3.5-5.1) Chloride Level 103mmol/L (98-107) 101mmol/L (98-107) 106mmol/L (98-107) Carbon Dioxide Level 25mmol/L (21-32) 24mmol/L (21-32) 28mmol/L (21-32) Anion Gap 12 (6-14) 10 (6-14) 9 (6-14) Blood Urea Nitrogen 10mg/dL (7-20) 8mg/dL (7-20) 9mg/dL (7-20) Creatinine 0.7mg/dL (0.6-1.0) 0.8mg/dL (0.6-1.0) 0.7mg/dL (0.6-1.0) Estimated GFR (Cockcroft-Gault) 93.6 80.3 93.6 Glucose Level 108mg/dL (70-99) 156mg/dL (70-99) 104mg/dL (70-99) Calcium Level 8.9mg/dL (8.5-10.1) 8.5mg/dL (8.5-10.1) 8.6mg/dL (8.5-10.1) Ethyl Alcohol Level < 10mg/dL (0-10) Segmented Neutrophils % 91% (35-66) Band Neutrophils % 1% (0-9) Lymphocytes % 8% (24-48) Platelet Estimate Adequate (ADEQUATE) Laboratory Tests Test 07/25/16 21:50 07/26/16 05:55 Hemoglobin 11.9g/dL (12.0-15.5) 12.2g/dL (12.0-15.5) Hematocrit 35.6% (36.0-47.0) 36.1% (36.0-47.0) Mean Corpuscular Hemoglobin Concent 33g/dL (31-37) 34g/dL (31-37) White Blood Count 13.8x10^3/uL (4.0-11.0) Red Blood Count 4.12x10^6/uL (3.50-5.40) Mean Corpuscular Volume 88fL (79-100) Mean Corpuscular Hemoglobin 30pg (25-35) Red Cell Distribution Width 14.2% (11.5-14.5) Platelet Count 292x10^3/uL (140-400) Neutrophils (%) (Auto) 65% (31-73) Lymphocytes (%) (Auto) 28% (24-48) Monocytes (%) (Auto) 6% (0-9) Eosinophils (%) (Auto) 0% (0-3) Basophils (%) (Auto) 1% (0-3) Neutrophils # (Auto) 8.9x10^3uL (1.8-7.7) Lymphocytes # (Auto) 3.9x10^3/uL (1.0-4.8) Monocytes # (Auto) 0.8x10^3/uL (0.0-1.1) Eosinophils # (Auto) 0.0x10^3/uL (0.0-0.7) Basophils # (Auto) 0.1x10^3/uL (0.0-0.2) Prothrombin Time 15.0SEC (11.7-14.0) Prothromb Time International Ratio 1.3 (0.8-1.1) Sodium Level 143mmol/L (136-145) Potassium Level 3.6mmol/L (3.5-5.1) Chloride Level 106mmol/L (98-107) Carbon Dioxide Level 28mmol/L (21-32) Anion Gap 9 (6-14) Blood Urea Nitrogen 9mg/dL (7-20) Creatinine 0.7mg/dL (0.6-1.0) Estimated GFR (Cockcroft-Gault) 93.6 Glucose Level 104mg/dL (70-99) Calcium Level 8.6mg/dL (8.5-10.1) Medications Current Medications Hydromorphone HCl 1 mg 1 mg 1X ONCE IV Last administered on 07/24/16 19:32; Start 07/24/16 at 19:30; Stop 07/24/16 at 19:32; Status DC Cefazolin Sodium (Ancef 1gm Ivpb For Omni) 50 ml @ 100 mls/hr 1X ONCE IV Last administered on 07/24/16 19:53; Start 07/24/16 at 19:30; Stop 07/24/16 at 19:59; Status DC Diphtheria/ Tetanus/Acell Pertussis (Boostrix) 0.5 ml ONCE ONCE VAX IM Last administered on 07/24/16 19:53; Start 07/24/16 at 19:30; Stop 07/24/16 at 19:32 ; Status DC Hydromorphone HCl (Dilaudid) 2 mg STK-MED ONCE .ROUTE ; Start 07/24/16 at 19:30 ; Stop 07/24/16 at 19:31; Status DC Hydromorphone HCl (Dilaudid) 1 mg Q1HR PRN IV PAIN Last administered on 21:09; Start 07/24/16 at 20:00; Stop 07/25/16 at 01:55; Status DC Lidocaine/Sodium Bicarbonate 20 ml 20 ml 1X ONCE IJ Last administered on 20:09; Start 07/24/16 at 20:15; Stop 07/24/16 at 20:16; Status DC Propofol (Diprivan) 20 ml @ As Directed STK-MED ONCE IV ; Start 07/24/16 at 20: 30; Stop 07/24/16 at 20:31; Status DC Lidocaine HCl 100 mg STK-MED ONCE .ROUTE ; Start 07/24/16 at 20:30; Stop at 20:31; Status DC Fentanyl Citrate (Fentanyl 2ml Vial) 100 mcg STK-MED ONCE .ROUTE ; Start at 20:30; Stop 07/24/16 at 20:31; Status DC Bacitracin 1 elana 1X STAT TP Last administered on 07/24/16 20:57; Start at 20:50; Stop 07/24/16 at 20:53; Status DC Neomycin/ Polymyxin/ Bacitracin (Triple Antibiotic Ointment) 1 pkt STK-MED ONCE TP ; Start 07/24/16 at 20:51; Stop 07/24/16 at 20:52; Status DC Ondansetron HCl 4 mg 4 mg PRN Q8HRS PRN IV NAUSEA/VOMITING; Start 07/24/16 at 21:00; Stop 07/25/16 at 01:54; Status DC Sodium Chloride (Iv Sodium Chloride 0.9% 1000ml Bag) 1,000 ml @ 100 mls/hr 1X ONCE IV ; Start 07/24/16 at 21:00; Stop 07/25/16 at 01:55; Status DC Ondansetron HCl (Zofran) 4 mg PRN Q6HRS PRN IV Nausea; Start 07/24/16 at 21:30 ; Stop 07/25/16 at 01:54; Status DC Fentanyl Citrate (Fentanyl 2ml Vial) 25 mcg PRN Q5MIN PRN IV MILD PAIN; Start 07/24/16 at 21:30; Stop 07/25/16 at 21:29; Status DC Fentanyl Citrate (Fentanyl 2ml Vial) 50 mcg PRN Q5MIN PRN IV MODERATE PAIN Last administered on 07/25/16t 00:43; Start 07/24/16 at 21:30; Stop 07/25/16 at 21:29; Status DC Morphine Sulfate 1 mg 1 mg PRN Q10MIN PRN IV SEVERE PAIN; Start 07/24/16 at 21: 30; Stop 07/25/16 at 21:29; Status DC Lactated Ringer's (Iv Lactated Ringers) 1,000 ml @ 30 mls/hr Q24H IV ; Start at 21:29; Stop 07/25/16 at 09:28; Status DC Lidocaine HCl 2 ml 1X PRN PRN ID IV START; Start 07/24/16 at 21:30; Stop at 21:29; Status DC Hydromorphone HCl (Dilaudid) 0.5 mg PRN Q10MIN PRN IV SEV PAIN,Second choice; Start 07/24/16 at 21:30; Stop 07/25/16 at 21:29; Status DC Prochlorperazine Edisylate (Compazine) 5 mg PACU PRN PRN IV NAUSEA Last administered on 07/25/16t 00:34; Start 07/24/16 at 21:30; Stop 07/25/16 at 21:29 ; Status DC Dexamethasone Sodium Phosphate (Decadron) 20 mg STK-MED ONCE .ROUTE ; Start at 21:51; Stop 07/24/16 at 21:52; Status DC Famotidine (Pepcid) 20 mg STK-MED ONCE .ROUTE ; Start 07/24/16 at 21:51; Stop at 21:52; Status DC Morphine Sulfate 10 mg STK-MED ONCE .ROUTE ; Start 07/24/16 at 21:51; Stop 07/24 at 21:52; Status DC Ondansetron HCl (Zofran) 4 mg STK-MED ONCE .ROUTE ; Start 07/24/16 at 21:52; Stop 07/24/16 at 21:53; Status DC Oxycodone HCl (Roxicodone) 5 mg PRN Q3HRS PRN PO PAIN Last administered on 07/25 21:56; Start 07/24/16 at 22:00 Morphine Sulfate 2 mg PRN Q1HR PRN IV PAIN Last administered on 07/26/16 08:23 ; Start 07/24/16 at 22:00 Fentanyl Citrate (Fentanyl 2ml Vial) 25 mcg PRN Q1HR PRN IV PAIN; Start at 22:00; Stop 07/26/16 at 05:20; Status DC Senna/Docusate Sodium (Senna Plus) 1 tab DAILY PO Last administered on 08:24; Start 07/25/16 at 09:00 Polyethylene Glycol (miraLAX PACKET) 17 gm PRN DAILY PRN PO CONSTIPATION; Start 07/24/16 at 22:00 Ondansetron HCl (Zofran) 4 mg PRN Q4HRS PRN IV NAUSEA/VOMITING; Start 07/24/16 at 22:00; Stop 07/26/16 at 05:20; Status DC Warfarin Sodium (Coumadin Per Pharmacy) 1 each PRN DAILY PRN MC SEE COMMENTS Last administered on 07/25/16 11:33; Start 07/25/16 at 22:00 Magnesium Hydroxide (Milk Of Magnesia) 2,400 mg 1X PRN PRN PO CONSTIPATION; Start 07/25/16 at 06:00; Stop 07/26/16 at 05:59; Status DC Bisacodyl (Dulcolax Supp) 10 mg 1X PRN PRN [place] CONSTIPATION; Start 07/25/16 at 16:00; Stop 07/26/16 at 15:59 Acetaminophen/ Hydrocodone Bitart (Lortab 7.5/325) 1 tab PRN Q4HRS PRN PO PAIN Last administered on 07/25/16 13:52; Start 07/24/16 at 22:00 Morphine Sulfate 4 mg PRN Q2HR PRN IV PAIN Last administered on 07/25/16 17:17 ; Start 07/24/16 at 22:00 Acetaminophen/ Hydrocodone Bitart (Lortab 7.5/325) 2 tab PRN Q4HRS PRN PO PAIN ; Start 07/24/16 at 22:00 Dextrose 12.5 gm 12.5 gm PRN Q15MIN PRN IV SEE COMMENTS; Start 07/24/16 at 22: 00 Cefazolin Sodium/ Dextrose (Ancef 2gm Premix) 50 ml @ 100 mls/hr Q6H IV ; Start 07/24/16 at 22:30; Stop 07/24/16 at 22:30; Status DC Dexamethasone Sodium Phosphate (Decadron) 20 mg STK-MED ONCE .ROUTE ; Start at 22:03; Stop 07/24/16 at 22:04; Status DC Famotidine (Pepcid) 20 mg STK-MED ONCE .ROUTE ; Start 07/24/16 at 22:03; Stop at 22:04; Status DC Ondansetron HCl (Zofran) 4 mg STK-MED ONCE .ROUTE ; Start 07/24/16 at 22:03; Stop 07/24/16 at 22:04; Status DC Desflurane 30 ml 30 ml STK-MED ONCE IH ; Start 07/24/16 at 22:03; Stop 07/24/16 at 22:04; Status DC Cefazolin Sodium/ Dextrose (Ancef 2gm Premix) 50 ml @ 100 mls/hr Q6H IV Last administered on 07/25/16t 12:00; Start 07/25/16 at 00:00; Stop 07/25/16 at 12:29 ; Status DC Acetaminophen (Tylenol) 325 mg PRN Q6HRS PRN PO MILD PAIN / TEMP; Start at 23:00; Stop 07/26/16 at 05:19; Status DC Acetaminophen/ Hydrocodone Bitart (Lortab 5/325) 1 tab PRN Q6HRS PRN PO MODERATE TO SEVERE PAIN; Start 07/24/16 at 23:00; Stop 07/25/16 at 01:54; Status DC Hydralazine HCl (Apresoline) 10 mg PRN Q4HRS PRN IVP ELEVATED BP, SEE COMMENTS ; Start 07/24/16 at 23:00 Ondansetron HCl (Zofran) 4 mg PRN Q8HRS PRN IV NAUSEA/VOMITING; Start 07/24/16 at 23:00; Stop 07/26/16 at 05:20; Status DC Albuterol Sulfate 2.5 mg 2.5 mg PRN Q4HRS PRN NEB SHORTNESS OF BREATH; Start at 23:00 Acetaminophen (Ofirmev) 100 ml @ As Directed STK-MED ONCE IV ; Start 07/24/16 at 23:34; Stop 07/24/16 at 23:35; Status DC Warfarin Sodium (Coumadin) 7.5 mg ONCE ONCE PO Last administered on 07/25/16 02:11; Start 07/25/16 at 02:00; Stop 07/25/16 at 02:01; Status DC Info (Anti-Coagulation Monitoring By Pharmacy) 1 each PRN DAILY PRN MC SEE COMMENTS; Start 07/24/16 at 22:00 Warfarin Sodium (Coumadin) 5 mg 1X WARF ONCE PO Last administered on 16:51; Start 07/25/16 at 16:00; Stop 07/25/16 at 16:01; Status DC Atorvastatin Calcium (Lipitor) 20 mg HS PO Last administered on 07/25/16 21:49 ; Start 07/25/16 at 21:00 Sertraline HCl (Zoloft) 50 mg HS PO Last administered on 07/25/16 21:49; Start 07/25/16 at 21:00 Acyclovir (Zovirax) 400 mg QHS PO Last administered on 07/25/16 21:49; Start 07/25/16 at 21:00 Non-Formulary Medication 1 each HS PO ; Start 07/25/16 at 21:00 Acetaminophen (Tylenol) 325 mg PRN Q6HRS PRN PO MILD PAIN / TEMP; Start at 05:19 Fentanyl Citrate (Fentanyl 2ml Vial) 25 mcg PRN Q1HR PRN IV PAIN; Start at 05:19 Ondansetron HCl (Zofran) 4 mg PRN Q4HRS PRN IV NAUSEA/VOMITING; Start 07/26/16 at 05:20 Active Scripts Active Reported Zoloft (Sertraline Hcl) 50 Mg Tablet 50 Mg PO HS Acyclovir 400 Mg Tablet 400 Mg PO HS Levora-28 (Levonorgestrel-Eth Estradiol) 1 Each Tablet 1 Each PO HS Atorvastatin Calcium 20 Mg Tablet 20 Mg PO HS Vitals/I & O Vital Sign - Last 24 Hours 07/25/16 07/25/16 07/25/16 07/25/16 10:17 11:00 13:09 13:52 Temp 98.1 98.1 Pulse 97 Resp 16 18 16 16 B/P 121/68 Pulse Ox 93 O2 Delivery Room Air Room Air Room Air Room Air 07/25/16 07/25/16 07/25/16 07/25/16 14:09 15:00 17:17 17:47 Temp 99.1 99.1 Pulse 94 Resp 18 16 16 B/P 127/72 Pulse Ox 93 O2 Delivery Room Air Room Air Room Air Room Air 07/25/16 07/25/16 07/25/16 07/25/16 19:57 20:00 21:56 22:56 Temp 98.3 98.3 Pulse 83 Resp 18 15 B/P 133/73 Pulse Ox 94 O2 Delivery Room Air Room Air Room Air Room Air 07/25/16 07/26/16 07/26/16 07/26/16 23:03 03:00 04:33 07:00 Temp 98.3 98.3 98.8 98.3 98.3 98.8 Pulse 76 83 85 Resp 18 18 14 18 B/P 127/71 109/67 112/64 Pulse Ox 94 90 92 O2 Delivery Room Air Room Air Room Air Room Air 07/26/16 07/26/16 08:23 08:53 Resp 16 14 O2 Delivery Room Air Room Air Intake and Output 07/25/16 07/25/16 07/26/16 15:00 23:00 07:00 Intake Total 120 ml 360 ml Output Total 650 ml Balance 120 ml -290 ml JASSI DOUGLASS III DO Jul 26, 2016 10:17
[2016-07-26] MEDS ORDERED: CYCLOBENZAPRINE 10 MG TABLET. PO PRN (10:30)
[2016-07-26] MEDS: CYCLOBENZAPRINE 10 MG TABLET. PO PRN ×2 (10:39→18:37)
[2016-07-26] MEDS: MORPHINE SULFATE 4 MG/ML DISP.SYRIN. IV PRN ×5 (10:39→20:53)
[2016-07-26 11:00] VITALS: BP 112/66
[2016-07-26 15:00] VITALS: BP 125/70
--- NOTE | 2016-07-26 15:08 | PDOC ---
ORTHO PROGRESS NOTES Subjective Painful today, complains of muscle cramps. keeping leg elevated. RN states there was a lot of drainage yesterday from the incision but better today. Did ok with therapy. Post-op Day: 2 (Right ORIF distal tibia) Vitals Vital Signs Date Time Temp Pulse Resp B/P Pulse Ox O2 Delivery O2 Flow Rate FiO2 07/26/16 13:29 16 Room Air 07/26/16 11:00 97.7 91 112/66 92 97.7 Labs Laboratory Tests Test 07/24/16 19:25 07/25/16 05:02 07/25/16 21:50 07/26/16 05:55 White Blood Count 16.2x10^3/uL (4.0-11.0) 14.0x10^3/uL (4.0-11.0) 13.8x10^3/uL (4.0-11.0) Red Blood Count 4.55x10^6/uL (3.50-5.40) 4.39x10^6/uL (3.50-5.40) 4.12x10^6/uL (3.50-5.40) Hemoglobin 13.5g/dL (12.0-15.5) 12.9g/dL (12.0-15.5) 11.9g/dL (12.0-15.5) 12.2g/dL (12.0-15.5) Hematocrit 40.6% (36.0-47.0) 38.3% (36.0-47.0) 35.6% (36.0-47.0) 36.1% (36.0-47.0) Mean Corpuscular Volume 89fL (79-100) 87fL (79-100) 88fL (79-100) Mean Corpuscular Hemoglobin 30pg (25-35) 29pg (25-35) 30pg (25-35) Mean Corpuscular Hemoglobin Concent 33g/dL (31-37) 34g/dL (31-37) 33g/dL (31-37) 34g/dL (31-37) Red Cell Distribution Width 14.0% (11.5-14.5) 13.9% (11.5-14.5) 14.2% (11.5-14.5) Platelet Count 370x10^3/uL (140-400) 309x10^3/uL (140-400) 292x10^3/uL (140-400) Neutrophils (%) (Auto) 59% (31-73) 88% (31-73) 65% (31-73) Lymphocytes (%) (Auto) 35% (24-48) 11% (24-48) 28% (24-48) Monocytes (%) (Auto) 4% (0-9) 1% (0-9) 6% (0-9) Eosinophils (%) (Auto) 2% (0-3) 0% (0-3) 0% (0-3) Basophils (%) (Auto) 0% (0-3) 1% (0-3) 1% (0-3) Neutrophils # (Auto) 9.5x10^3uL (1.8-7.7) 12.3x10^3uL (1.8-7.7) 8.9x10^3uL (1.8-7.7) Lymphocytes # (Auto) 5.6x10^3/uL (1.0-4.8) 1.5x10^3/uL (1.0-4.8) 3.9x10^3/uL (1.0-4.8) Monocytes # (Auto) 0.7x10^3/uL (0.0-1.1) 0.2x10^3/uL (0.0-1.1) 0.8x10^3/uL (0.0-1.1) Eosinophils # (Auto) 0.3x10^3/uL (0.0-0.7) 0.0x10^3/uL (0.0-0.7) 0.0x10^3/uL (0.0-0.7) Basophils # (Auto) 0.0x10^3/uL (0.0-0.2) 0.1x10^3/uL (0.0-0.2) 0.1x10^3/uL (0.0-0.2) Prothrombin Time 12.7SEC (11.7-14.0) 13.1SEC (11.7-14.0) 15.0SEC (11.7-14.0) Prothromb Time International Ratio 1.0 (0.8-1.1) 1.1 (0.8-1.1) 1.3 (0.8-1.1) Activated Partial Thromboplast Time 23SEC (24-38) Maternal Serum HCG Beta Subunit < 1mIU/mL (0-6) Sodium Level 140mmol/L (136-145) 135mmol/L (136-145) 143mmol/L (136-145) Potassium Level 3.6mmol/L (3.5-5.1) 4.4mmol/L (3.5-5.1) 3.6mmol/L (3.5-5.1) Chloride Level 103mmol/L (98-107) 101mmol/L (98-107) 106mmol/L (98-107) Carbon Dioxide Level 25mmol/L (21-32) 24mmol/L (21-32) 28mmol/L (21-32) Anion Gap 12 (6-14) 10 (6-14) 9 (6-14) Blood Urea Nitrogen 10mg/dL (7-20) 8mg/dL (7-20) 9mg/dL (7-20) Creatinine 0.7mg/dL (0.6-1.0) 0.8mg/dL (0.6-1.0) 0.7mg/dL (0.6-1.0) Estimated GFR (Cockcroft-Gault) 93.6 80.3 93.6 Glucose Level 108mg/dL (70-99) 156mg/dL (70-99) 104mg/dL (70-99) Calcium Level 8.9mg/dL (8.5-10.1) 8.5mg/dL (8.5-10.1) 8.6mg/dL (8.5-10.1) Ethyl Alcohol Level < 10mg/dL (0-10) Segmented Neutrophils % 91% (35-66) Band Neutrophils % 1% (0-9) Lymphocytes % 8% (24-48) Platelet Estimate Adequate (ADEQUATE) Laboratory Tests Test 07/25/16 21:50 07/26/16 05:55 Hemoglobin 11.9g/dL (12.0-15.5) 12.2g/dL (12.0-15.5) Hematocrit 35.6% (36.0-47.0) 36.1% (36.0-47.0) Mean Corpuscular Hemoglobin Concent 33g/dL (31-37) 34g/dL (31-37) White Blood Count 13.8x10^3/uL (4.0-11.0) Red Blood Count 4.12x10^6/uL (3.50-5.40) Mean Corpuscular Volume 88fL (79-100) Mean Corpuscular Hemoglobin 30pg (25-35) Red Cell Distribution Width 14.2% (11.5-14.5) Platelet Count 292x10^3/uL (140-400) Neutrophils (%) (Auto) 65% (31-73) Lymphocytes (%) (Auto) 28% (24-48) Monocytes (%) (Auto) 6% (0-9) Eosinophils (%) (Auto) 0% (0-3) Basophils (%) (Auto) 1% (0-3) Neutrophils # (Auto) 8.9x10^3uL (1.8-7.7) Lymphocytes # (Auto) 3.9x10^3/uL (1.0-4.8) Monocytes # (Auto) 0.8x10^3/uL (0.0-1.1) Eosinophils # (Auto) 0.0x10^3/uL (0.0-0.7) Basophils # (Auto) 0.1x10^3/uL (0.0-0.2) Prothrombin Time 15.0SEC (11.7-14.0) Prothromb Time International Ratio 1.3 (0.8-1.1) Sodium Level 143mmol/L (136-145) Potassium Level 3.6mmol/L (3.5-5.1) Chloride Level 106mmol/L (98-107) Carbon Dioxide Level 28mmol/L (21-32) Anion Gap 9 (6-14) Blood Urea Nitrogen 9mg/dL (7-20) Creatinine 0.7mg/dL (0.6-1.0) Estimated GFR (Cockcroft-Gault) 93.6 Glucose Level 104mg/dL (70-99) Calcium Level 8.6mg/dL (8.5-10.1) Notes Incisions well approximated. Scant bloody drainage. Moderate edema. Able to wiggle toes and neurovascularly intact. Problems: (1) Open right ankle fracture Assessment and Plan NWB for two months Stay in the hospital another day for pain control, I explained that she needs to be able to transition to oral pain medicine prior to discharge I would also like her to work with therapy some more. Problem Qualifiers (1) Open right ankle fracture: Encounter type: subsequent encounter Open fracture type: open type I or II Fracture healing: with routine healing Qualified Code: S82.891E - Other fracture of right lower leg, subsequent encounter for open fracture type I or II with routine healing SERGIO CEJA [employer] DES[employer] Jul 26, 2016 15:08
[2016-07-26] MEDS ORDERED: WARFARIN 5 MG TABLET. PO ONE (16:00)
[2016-07-26 19:25] VITALS: BP 108/65
[2016-07-26] MEDS: LEVONORGESTREL PO SCH (20:51)
[2016-07-26] MEDS: ETHINYL ESTRADIOL PO SCH (20:51)
[2016-07-26] MEDS: SERTRALINE 50 MG TABLET. PO SCH (20:52)
[2016-07-26] MEDS: ACYCLOVIR 200 MG CAPSULE. PO SCH (20:52)
[2016-07-26] MEDS: ATORVASTATIN CALCIUM 20 MG TABLET PO SCH (20:53)
[2016-07-26] MEDS: HYDROCODONE/APAP 7.5/325MG TABLET. PO PRN (21:59)
[2016-07-26 23:14] VITALS: BP 106/62
[2016-07-27] MEDS: OXYCODONE IR 5 MG TABLET. PO PRN ×2 (00:45→16:55)
[2016-07-27 03:12] VITALS: BP 103/57
[2016-07-27] MEDS: HYDROCODONE/APAP 7.5/325MG TABLET. PO PRN ×3 (04:49→13:32)
[2016-07-27 04:57] LABS: BASO # 0.2 x10^3/uL (0.0-0.2); BASO % 2 % (0-3); EOS % 2 % (0-3); HEMATOCRIT 35.9 % (36.0-47.0); HEMOGLOBIN 11.9 g/dL (12.0-15.5); LYMPH # 4.3 x10^3/uL (1.0-4.8); LYMPH % 36 % (24-48); MEAN CORPUSCULAR HEMOGLOBIN 30 pg (25-35); MEAN CORPUSCULAR HGB CONC 33 g/dL (31-37); MEAN CORPUSCULAR VOLUME 90 fL (79-100); MONO % 7 % (0-9); NEUT % 54 % (31-73); PLATELET COUNT 281 x10^3/uL (140-400); RED CELL DISTRIBUTION WIDTH 14.1 % (11.5-14.5)
[2016-07-27] MEDS: CYCLOBENZAPRINE 10 MG TABLET. PO PRN ×2 (04:58→13:31)
[2016-07-27 05:08] LABS: INR 1.5 (0.8-1.1); PROTHROMBIN TIME PATIENT 16.8 SEC (11.7-14.0)
[2016-07-27 05:22] LABS: CALCIUM 8.7 mg/dL (8.5-10.1); CREATININE 0.6 mg/dL (0.6-1.0); GFR 111.9; POTASSIUM 3.5 mmol/L (3.5-5.1)
[2016-07-27 07:00] VITALS: BP 101/55
[2016-07-27] MEDS: SENNOSIDES/DOCUSATE 8.6/50MG TABLET. PO SCH (09:03)
[2016-07-27 11:00] VITALS: BP 122/69
[2016-07-27 15:00] VITALS: BP 105/67
[2016-07-27] MEDS ORDERED: WARFARIN 4 MG TABLET. PO ONE (16:00)
[2016-07-27 18:50] VITALS: BP 113/72
[2016-07-27 19:50] VITALS: BP 111/75
--- NOTE | 2016-07-28 01:25 | DS ---
DATE OF DISCHARGE: 07/27/2016 DISCHARGE DIAGNOSIS: Status post open reduction and internal fixation, distal tibia-fibula fracture open by Dr. Fritz. BRIEF HOSPITAL COURSE: A 36-year-old female patient with anxiety and hyperlipidemia, admitted to the hospital after sustaining a fall and had a right ankle open fracture. She was emergently taken to OR and right ankle was repaired by Dr. Fritz. Today, the patient is postop day 3. Clinically, she is improving. Symptoms have been controlled. Dr. Fritz has recommended her not to weight bear for next 3 months. The patient has been started on oral anticoagulation and recommended to follow up with the primary care doctor and Dr. Fritz. Given her physical debility, she has been sent to senior care facility for continued care. DISCHARGE EXAMINATION: GENERAL: Alert and oriented x 3. HEART: S1, S2 present. LUNGS: Anterior chest clear. ABDOMEN: Soft, nontender, no organomegaly. EXTREMITIES: Right lower extremity sensations intact. Dressing intact. DISCHARGE DISPOSITION: [facility] facility. DISCHARGE CONDITION: Stable. MEDICATIONS: Reviewed and reconciled. Please see MRAD. Total time spent for discharge is 32 minutes for the patient education, counseling, and coordination of care. FOLLOWUP: With Dr. Fritz in 2 weeks. Oral anticoagulation needs to be monitored by primary care doctor after discharge to the facility. The case discussed with the public health social worker. STAS AGUILAR MD DR: SILVANO/cisco JOB#: [id number] / [id number]
--- NOTE | 2016-07-29 02:10 | OP ---
DATE OF SURGERY: 07/25/2016 ORTHOPEDIC OPERATIVE NOTE PRE AND POSTOPERATIVE DIAGNOSIS: Open distal tibia and fibula fractures involving the distal metaphysis of the tibia and fibular shaft and the distal weightbearing surface of the tibia (tibial pilon). PPROCEDURE: Irrigation and debridement with open reduction and internal fixation of distal tibial pilon and fibular shaft fracture. SURGEON: Saman Fritz M.D. ANESTHESIA: General. ESTIMATED BLOOD LOSS: 100 mL. COMPLICATIONS: None. OPERATIVE INDICATIONS: The patient sustained a fall down the steps with an open fracture described above, was seen in the Emergency Department and had about a 5-6 cm laceration of the medial aspect of the metaphyseal area of the tibia that was without gross contamination present. Based on the nature of the injury, I had gone over with the patient the need for fairly urgent treatment. She had received antibiotics in the Emergency Department. I described washing out of the area and the planned fixation of the fractures. While certainly tibial fixation is absolutely necessary due to the involvement of the weightbearing surface, the fibular fracture will be dependent on its possible reduction, alignment and healing capability. All her questions were answered. Consent was obtained and she agrees to proceed with operative evaluation and treatment. OPERATIVE TECHNIQUE: The patient was identified, procedure verified. The patient placed in the supine position on the operating table. After adequate amounts of general endotracheal anesthesia were administered and a right lower extremity was prepped and draped in standard sterile fashion, a timeout was performed. The patient procedure identified and verified. First, the area was thoroughly examined and found to be free from any gross contamination. Any devitalized tissue at the area of the open fracture site was debrided and bleeding points controlled by electrocautery and so the bone did not really require debridement but was thoroughly inspected, again free from gross contaminants. Thorough irrigation was first carried out with normal saline solution and pulse lavage. Next, the area of the wound was extended proximally and distally along the tibial shaft down to the tip of the medial malleolus and subperiosteal dissection was carried out to expose the fracture and allow adequate fracture reduction. There appeared under fluoroscopy during this reduction process to be a bone void in the metaphyseal area laterally. On further examination, there was actually bone attached to some soft tissue in the area but it was now reduced. An interfragmentary screw was initially contemplated; however, due to the comminution it was not practical. A medial distal tibial Graves and Nephew locking plate was placed and with the fracture reduced anatomically under fluoroscopic guidance, a shaft screw was placed for stability. Distal locking screws were then placed and excellent provisional reduction was obtained. The remainder of the shaft screws was then placed and the portion of the cortical bone was reoriented laterally for the best approximation possible, noting that there was significant comminution. The fibular shaft after reduction was still continued malalignment and therefore, an incision was made directly over the fracture site and a 4-hole semi-tubular plate was placed on the area after fracture reduction with nonlocking screws achieving anatomic reduction and stability of the fibular fragment. The pilon portion was reduced and buttressed by the medial distal tibial locking screws and additional fixation had previously been provided by a 2.7 screw placed up the area of the reduced medial fragment extending into the tibial weightbearing area. Excellent reduction of the tibial shaft weightbearing surface and fibular shaft and ankle joint mortise were noted under multiple fluoroscopic views. Thorough irrigation carried out with normal saline solution, pulse lavage. Closure was accomplished with buried Vicryl suture in addition to nylon suture and a tension relieving [id number] stitch along with a combination of simple and mattress sutures to achieve optimal closure of the medial wound. The lateral wound was closed with buried Vicryl suture and subcuticular Monocryl, Steri-Strips and Mastisol. Sterile dressings were applied followed by a well-padded posterior splint. The patient was extubated and transferred to postop holding in stable condition, having tolerated the procedure well. SAMAN FRITZ MD DR: TAMIR/cisco JOB#: [id number] / [id number]
== END 2016-07-27 15:00 | DRG 494 ==
LOC: ER 19:14 → 4 NORTH 20:55
PROVIDERS: ADMIT Internal Medicine; ATTEND Internal Medicine
PROC: 0JQH0ZZ Repair Left Lower Arm Subcutaneous Tissue and Fascia, Open Approach (ICD-10-PCS; 2016-07-23)
PROC: 0QSG04Z Reposition Right Tibia with Internal Fixation Device, Open Approach (ICD-10-PCS; principal; 2016-07-25)
PROC: 0QSJ04Z Reposition Right Fibula with Internal Fixation Device, Open Approach (ICD-10-PCS; 2016-07-25)
DX: S82.871B Displaced pilon fracture of right tibia, initial encounter for open fracture type I or II (principal); E78.5 Hyperlipidemia, unspecified; F41.9 Anxiety disorder, unspecified; S00.83XA Contusion of other part of head, initial encounter; E78.00 Pure hypercholesterolemia, unspecified; W10.8XXA Fall (on) (from) other stairs and steps, initial encounter; S51.812A Laceration without foreign body of left forearm, initial encounter; Z82.49 Family history of ischemic heart disease and other diseases of the circulatory system; Y93.89 Activity, other specified; Y92.89 Other specified places as the place of occurrence of the external cause; Y99.8 Other external cause status
CPT/HCPCS: 12002; 36415; 71010; 73600; 76001; 80048; 84702; 85007; 85014; 85018; 85027; 85610; 85730; 86850; 86900; 86901; 90471; 90715; 96374; 96375; 96376; C1713; G0480; J0131; J0690; J0780; J1100; J1170; J2270; J2405; J2704; J3010; J7120; S0028; 97116; 97530; 97535; 99285-25